=== PATIENT | female | born 1985 | race African-American/Black ===

== ENCOUNTER 2017-12-24 09:47 | Emergency (ER) | payer OTHER ==
[~2017-12-24] VITALS: Ht 165.1 cm; Wt 131.5 kg
[2017-12-24 09:57] VITALS: BP 112/45
[2017-12-24 11:07] VITALS: BP 112/45
== END 2017-12-24 11:03 | disposition home or self-care (01) ==
LOC: MED 09:47
DX: J02.9 Acute pharyngitis, unspecified (principal)
CPT/HCPCS: 99283

== ENCOUNTER 2017-12-28 08:12 | Emergency (ER) | payer OTHER ==
[~2017-12-28] VITALS: Ht 172.7 cm; Wt 134.7 kg
[2017-12-28 08:16] VITALS: BP 140/97
[2017-12-28 08:29] VITALS: BP 140/97
== END 2017-12-28 08:29 | disposition home or self-care (01) ==
LOC: MED 08:12
DX: Z02.79 Encounter for issue of other medical certificate (principal); R03.0 Elevated blood-pressure reading, without diagnosis of hypertension
CPT/HCPCS: 99281